=== PATIENT | female | born 1975 | race Caucasian/White ===

== ENCOUNTER 2016-11-09 21:41 | Emergency (ER) | payer MEDICAID ==
[2016-11-09 22:22] LABS: % IMMATURE GRANULYOCYTES 0.1 % (0.0-1.1); ABSOLUTE IMMATURE GRANULOCYTES 0.01 10^3/uL (0.00-0.10); ADD DIFF? NO; ADD MORPH? NO; ADD SCAN? NO; ATYPICAL LYMPHOCYTE FLAG 10 (0-99); FRAGMENT RBC FLAG 0 (0-99); HEMATOCRIT 40.9 % (38.0-47.0); HEMOGLOBIN 14.2 g/dL (12.6-16.3); LEFT SHIFT FLG 0 (0-99); LIPEMIA HEMOLYSIS FLAG 90 (0-99); MEAN CELL HEMOGLOBIN 34.4 pg (27.9-34.1); MEAN CELL HEMOGLOBIN CONCENTR. 34.7 g/dL (32.4-36.7); MEAN PLATELET VOLUME 9.4 fL (8.7-11.7); PLATELET CLUMPS FLAG 0 (0-99); PLATELET COUNT 268 10^3/uL (150-400); RED BLOOD CELL COUNT 4.13 10^6/uL (4.18-5.33); RED CELL DISTRIBUTION WIDTH 12.4 % (11.5-15.2)
[2016-11-09 22:32] LABS: ANION GAP 12 mEq/L (8-16); CALCIUM 8.9 mg/dL (8.5-10.4); CARBON DIOXIDE 26 mEq/l (22-31); CHLORIDE 111 mEq/L (97-110); CREATININE 0.8 mg/dL (0.6-1.0); ETHANOL SERUM 164 mg/dL (0-10); GLOMERULAR FILTRATION RATE > 60; GLUCOSE 77 mg/dL (70-100); POTASSIUM 4.1 mEq/L (3.5-5.2); SODIUM 149 mEq/L (134-144)
--- NOTE | 2016-11-09 23:45 | EDPHY ---
H & P Smoking Status: Never smoked Time Seen by Provider: 11/09/16 21:59 HPI/ROS: Chief complaint. Xanax, alcohol ingestion. Suicide ideation HPI. Patient 41-year-old female with history of previous anxiety depression suicide attempts. She was texting with her brother this afternoon and then he was unable to get a hold of her. Using her phone as a low care [facility] She was in the backseat of the car open bottle of Tequila in the front. She has had this same operation when trying to harm herself previously. She has apparently been drinking alcohol and taking Xanax ROS Constitutional. no fever/chills, no weakness Eyes. no problems with vision ENT. no sore throat, no nasal drainage Cardiovascular. no chest pain Respiratory. no shortness of breath, no cough Abdominal. no abdominal pain, no nausea/vomiting, no diarrhea . no problems urinating MS. no calf pain/swelling, no neck/back pain, no joint pain Skin. no rash Lymph. no swollen glands Neuro. no headache, no dizziness, no difficulty walking or with speech (Bernabe Burton) Past Medical/Surgical History: Anxiety, depression, previous suicide attempt (Bernabe Burton) Social History: Single, nonsmoker, recent alcohol (Bernabe Burton) Physical Exam: General Appearance: Alert well-developed female some slurred speech vital signs are stable Eyes: Pupils equal and round no pallor or injection. ENT, Mouth: Mucous membranes are moist. Respiratory: There are no retractions, lungs are clear to auscultation. Cardiovascular: Regular rate and rhythm. Gastrointestinal: Abdomen is soft and nontender, no masses, bowel sounds normal. Neurological: Awake and alert, sensory and motor exams grossly normal. Skin: Warm and dry, no rashes. Musculoskeletal: Neck is supple nontender. Extremities symmetrical, full range of motion. Psychiatric: Patient is oriented X 3, there is no agitation. (Bernabe Burton) Constitutional: Initial Vital Signs Temperature (C) 36.5 C 11/09/16 21:41 Heart Rate 80 11/09/16 21:41 Respiratory Rate 16 11/09/16 21:41 Blood Pressure 132/88 H 11/09/16 21:41 O2 Sat (%) 98 11/09/16 21:41 O2 Delivery Mode Room Air Allergies/Adverse Reactions: No Known Allergies Allergy (Unverified 02/13/16 21:40) Medical Decision Making Procedures: IV normal saline (Bernabe Burton) ED Course/Re-evaluation: Patient remained stable. She is cleared medically. Tox screen is positive for marijuana and alcohol. Negative for benzodiazepines Patient is awaiting mental health evaluation (Bernabe Burton) 0559: patient seen evaluated by mental health. Patient's, cooperative contract for safety she does not want hurt herself or kill herself. She tells me that she felt very anxious and has been doubt depression. She has good resources in place and follow-up care in place. She does contract for safety. She would like to be discharged from the emergency room. Mental health evaluation has seen evaluated her they feel comfortable with her being discharged. Patient feels comfortable being discharged as well. (Nik Thomas) Differential Diagnosis: Suicide ideation. Alcohol and marijuana intoxication I considered other intoxications or withdrawal syndromes (Bernabe Burton) Care Turn Over: Dr. Can at 2330 (Bernabe Burton) - Data Points Laboratory Results: Laboratory Results 11/09/16 21:55 11/09/16 21:55 11/09/16 21:55 WBC 7.51 10^3/uL (3.80-9.50) RBC 4.13 L 10^6/uL (4.18-5.33) Hgb 14.2 g/dL (12.6-16.3) Hct 40.9 % (38.0-47.0) MCV 99.0 fL (81.5-99.8) MCH 34.4 H pg (27.9-34.1) MCHC 34.7 g/dL (32.4-36.7) RDW 12.4 % (11.5-15.2) Plt Count 268 10^3/uL (150-400) MPV 9.4 fL (8.7-11.7) Neut % (Auto) 60.0 % (39.3-74.2) Lymph % (Auto) 28.8 % (15.0-45.0) [place] % (Auto) 6.7 % (4.5-13.0) Eos % (Auto) 3.7 % (0.6-7.6) Baso % (Auto) 0.7 % (0.3-1.7) Nucleat RBC Rel Count 0.0 % (0.0-0.2) Absolute Neuts (auto) 4.51 10^3/uL (1.70-6.50) Absolute Lymphs (auto) 2.16 10^3/uL (1.00-3.00) Absolute Monos (auto) 0.50 10^3/uL (0.30-0.80) Absolute Eos (auto) 0.28 10^3/uL (0.03-0.40) Absolute Basos (auto) 0.05 10^3/uL (0.02-0.10) Absolute Nucleated RBC 0.00 10^3/uL (0-0.01) Immature Gran % 0.1 % (0.0-1.1) Immature Gran # 0.01 10^3/uL (0.00-0.10) Sodium 149 H mEq/L (134-144) Potassium 4.1 mEq/L (3.5-5.2) Chloride 111 H mEq/L (97-110) Carbon Dioxide 26 mEq/l (22-31) Anion Gap 12 mEq/L (8-16) BUN 11 mg/dL (7-23) Creatinine 0.8 mg/dL (0.6-1.0) Estimated GFR > 60 Glucose 77 mg/dL (70-100) Calcium 8.9 mg/dL (8.5-10.4) Beta HCG, Qual NEGATIVE Urine Opiates Screen NEGATIVE (NEGATIVE) Urine Barbiturates NEGATIVE (NEGATIVE) Ur Phencyclidine Scrn NEGATIVE (NEGATIVE) Ur Amphetamine Screen NEGATIVE (NEGATIVE) U Benzodiazepines Scrn NEGATIVE (NEGATIVE) Urine Cocaine Screen NEGATIVE (NEGATIVE) U Marijuana (THC) Screen NEGATIVE (NEGATIVE) Ethyl Alcohol 164 H mg/dL (0-10) Departure - Departure Disposition: Home, Routine, Self-Care Clinical Impression: Polysubstance abuse, Alcohol intoxication, Anxiety Condition: Fair Instructions: Anxiety (ED) Additional Instructions: 1. If you have any worsening symptoms or feel bad have thoughts of harming herself or somebody else please immediately return to the emergency room. 2. Please follow up with the resources you be given by mental health. Referrals: NONE *PRIMARY CARE P,. [Primary Care Provider] - As per Instructions
[2016-11-10 02:04] VITALS: RESP 16
[2016-11-10 06:12] VITALS: BP 120/81; PULSE 88; TEMP 98.1; O2SAT 96
== END 2016-11-10 06:21 | disposition home or self-care (01) ==
LOC: EDUNIT#
DX: F10.129 Alcohol abuse with intoxication, unspecified (principal); F19.10 Other psychoactive substance abuse, uncomplicated; F41.9 Anxiety disorder, unspecified
CPT/HCPCS: 80305; G0480

== ENCOUNTER 2017-04-18 14:08 | Emergency (ER) | payer MEDICAID ==
--- NOTE | 2017-04-18 14:22 | EDPHY ---
H & P Source: Patient, EMS - Medical/Surgical History Hx Asthma: No Hx Chronic Respiratory Disease: No Hx Diabetes: No Hx Cardiac Disease: No Hx Renal Disease: No Hx Cirrhosis: No Hx Alcoholism: No Hx HIV/AIDS: No Hx Splenectomy or Spleen Trauma: No Other PMH: anxiety, depression, hx clonazepam - Social History Smoking Status: Never smoked HPI/ROS: HPI CHIEF COMPLAINT: Depression HISTORY OF PRESENT ILLNESS: This patient 41-year-old female she does have significant past medical history for depression with previous suicide attempt requiring intubation from alcohol and benzo overdose. Patient presents to the emergency room by EMS after police made a welfare check on her from a family member calling 911. According to EMS the family did not hear from her for few days they became concerned. EMS reports that she has been drinking alcohol and did take clonazepam. Patient denies SI but does feel depressed. She does not present on M1 hold however for after further evaluation discussion patient is flat affect very depressed intoxicated with alcohol and I feel that she is gravely disabled and a threat to herself she will need to be placed on M1 hold. She will need to have medical clearance. And then mental health evaluation. Past Medical History: Depression, previous suicide attempt requiring intubation Past Surgical History: No recent surgery Social History: Abuse clonazepam, alcohol Family History: Noncontributory ROS REVIEW OF SYSTEMS: A comprehensive 10 point review of systems is otherwise negative aside from elements mentioned in the history of present illness. Exam Constitutional triage nursing summary reviewed, vital signs reviewed, awake/ alert. Eyes normal conjunctivae and sclera, EOMI, PERRLA. HENT normal inspection, atraumatic, moist mucus membranes, no epistaxis, neck supple/ no meningismus, no raccoon eyes. Respiratory clear to auscultation bilaterally, normal breath sounds, no respiratory distress, no wheezing. Cardiovascular rate normal, regular rhythm, no murmur, no edema, distal pulses normal. Gastrointestinal soft, non-tender, no rebound, no guarding, normal bowel sounds, no distension, no pulsatile mass. Genitourinary no CVA tenderness. Musculoskeletal no midline vertebral tenderness, full range of motion, no calf swelling, no tenderness of extremities, no meningismus, good pulses, neurovascularly intact. Skin pink, warm, & dry, no rash, skin atraumatic. Neurologic awake, alert and oriented x 3, AAOx3, moves all 4 extremities equally, motor intact, sensory intact, CN II-XII intact, normal cerebellar, normal vision, normal speech. Psychiatric flat affect Heme/Lymph/Immune no lymphadenopathy. Differential Diagnosis: Includes but is not limited to in a particular order severe depression, benzodiazepine overdose, alcohol intoxication, gravely disabled Medical Decision Making: Plan for this patient IV establishment, EKG, cardiac cath technologist, blood draw for medical clearance, alcohol level, M1 hold. Patient will need mental health evaluation. Re-evaluation: EKG interpretation by me on record in [facility] system. Impression time of EKG 1441. This is sinus rhythm rate of 76. No acute ischemic change appreciated. Unremarkable intervals. Unremarkable EKG. 2228: No acute events during my shift. Now much more sober. Depressed. Flat affect. On M1 hold. Patient still needs mental evaluation. Patient signed over at 10:00 p.m. shift change to Dr. Whitley (Nik Thomas) Constitutional: Initial Vital Signs Temperature (C) 36.9 C 04/18/17 14:08 Heart Rate 87 04/18/17 14:08 Respiratory Rate 16 04/18/17 14:08 Blood Pressure 127/93 H 04/18/17 14:08 O2 Sat (%) 95 04/18/17 14:08 O2 Delivery Mode Room Air Allergies/Adverse Reactions: triazolam [From Halcion] Allergy (Unverified 04/18/17 14:16) Home Medications: Medication Instructions Recorded Clonazepam 04/18/17 Medical Decision Making ED Course/Re-evaluation: 2300 care assumed by me from Dr. Thomas pending mental health evaluation. 0230 patient has been evaluated by the EPS senior bi developer [place]. She knows the patient. Patient is currently not a suicide risk. She has had some depression but no plans or thoughts of suicide. She is andrew for safety at this time. Evaluated is also spoke with the patient's brother who is in agreement that is not believe the patient is a danger to herself. Plan will be to discharge home and follow up as an outpatient. She will return for any concerns. I am in agreement with this plan and the patient is discharged for outpatient care. (Robert Whitley) - Data Points Laboratory Results: Laboratory Results 04/18/17 14:45 04/18/17 14:45 04/18/17 04/18/17 04/18/17 14:45 14:45 14:45 WBC 10.34 10^3/uL H 10^3/uL (3.80-9.50) RBC 4.18 10^6/uL 10^6/uL (4.18-5.33) Hgb 14.6 g/dL g/dL (12.6-16.3) Hct 41.1 % % (38.0-47.0) MCV 98.3 fL fL (81.5-99.8) MCH 34.9 pg H pg (27.9-34.1) MCHC 35.5 g/dL g/dL (32.4-36.7) RDW 11.9 % % (11.5-15.2) Plt Count 221 10^3/uL 10^3/uL (150-400) MPV 9.4 fL fL (8.7-11.7) Neut % (Auto) 74.7 % H % (39.3-74.2) Lymph % (Auto) 15.8 % % (15.0-45.0) [place] % (Auto) 6.7 % % (4.5-13.0) Eos % (Auto) 1.5 % % (0.6-7.6) Baso % (Auto) 0.7 % % (0.3-1.7) Nucleat RBC Rel Count 0.0 % % (0.0-0.2) Absolute Neuts (auto) 7.73 10^3/uL H 10^3/uL (1.70-6.50) Absolute Lymphs (auto) 1.63 10^3/uL 10^3/uL (1.00-3.00) Absolute Monos (auto) 0.69 10^3/uL 10^3/uL (0.30-0.80) Absolute Eos (auto) 0.16 10^3/uL 10^3/uL (0.03-0.40) Absolute Basos (auto) 0.07 10^3/uL 10^3/uL (0.02-0.10) Absolute Nucleated RBC 0.00 10^3/uL 10^3/uL (0-0.01) Immature Gran % 0.6 % % (0.0-1.1) Immature Gran # 0.06 10^3/uL 10^3/uL (0.00-0.10) Sodium 149 mEq/L H mEq/L (134-144) Potassium 4.1 mEq/L mEq/L (3.5-5.2) Chloride 112 mEq/L H mEq/L (97-110) Carbon Dioxide 22 mEq/l mEq/l (22-31) Anion Gap 15 mEq/L mEq/L (8-16) BUN 10 mg/dL mg/dL (7-23) Creatinine 0.8 mg/dL mg/dL (0.6-1.0) Estimated GFR > 60 Glucose 73 mg/dL mg/dL (70-100) Calcium 9.0 mg/dL mg/dL (8.5-10.4) Beta HCG, Qual NEGATIVE Salicylates < 1.0 mg/dL L mg/dL (2.0-20.0) Acetaminophen < 10 mcg/mL L mcg/mL (10.0-30.0) Ethyl Alcohol 222 mg/dL H mg/dL (0-10) Medications Given: Discontinued Medications Sodium Chloride (Ns) 1,000 mls @ 0 mls/hr IV ONCE ONE; Wide Open PRN Reason: Protocol Stop: 04/18/17 14:28 Last Admin: 04/18/17 14:52 Dose: 1,000 mls Departure - Departure Disposition: Home, Routine, Self-Care Clinical Impression: Depression Qualifiers: Depression Type: major depressive disorder Major depression recurrence: single episode Active/Remission status: currently active Major depression episode severity: moderate Qualified Code(s): F32.1 - Major depressive disorder, single episode, moderate Condition: Fair Instructions: Depression (ED) Additional Instructions: Follow up with primary care physician in 2-3 days for further evaluation. Return emergency department for worsening depression, thoughts of suicide or self-harm, increasing paranoia, thoughts of hopelessness, or any other concerns. Referrals: Patient,NotPresent [Unknown] - As per Instructions
[2017-04-18] MEDS ORDERED: NS 1,000 ML IV ONE (14:27)
--- NOTE | 2017-04-18 14:43 | CPEKG ---
Heart Rate: 76 RR Interval: 789 P-R Interval: 140 QRSD Interval: 70 QT Interval: 368 QTC Interval: 414 P [place]: 36 QRS [place]: 61 T Wave [place]: 59 EKG Severity - NORMAL ECG - EKG Impression: SINUS RHYTHM Electronically Signed By: Nik Thomas 18-Apr-2017 22:32:10
[2017-04-18 15:13] LABS: % IMMATURE GRANULYOCYTES 0.6 % (0.0-1.1); ABSOLUTE IMMATURE GRANULOCYTES 0.06 10^3/uL (0.00-0.10); ADD DIFF? NO; ADD MORPH? NO; ADD SCAN? NO; ATYPICAL LYMPHOCYTE FLAG 20 (0-99); FRAGMENT RBC FLAG 0 (0-99); HEMATOCRIT 41.1 % (38.0-47.0); HEMOGLOBIN 14.6 g/dL (12.6-16.3); LEFT SHIFT FLG 10 (0-99); LIPEMIA HEMOLYSIS FLAG 90 (0-99); MEAN CELL HEMOGLOBIN 34.9 pg (27.9-34.1); MEAN CELL HEMOGLOBIN CONCENTR. 35.5 g/dL (32.4-36.7); MEAN CELL VOLUME 98.3 fL (81.5-99.8); MEAN PLATELET VOLUME 9.4 fL (8.7-11.7); PLATELET CLUMPS FLAG 0 (0-99); PLATELET COUNT 221 10^3/uL (150-400); RED BLOOD CELL COUNT 4.18 10^6/uL (4.18-5.33); RED CELL DISTRIBUTION WIDTH 11.9 % (11.5-15.2)
[2017-04-18 15:22] LABS: ANION GAP 15 mEq/L (8-16); CARBON DIOXIDE 22 mEq/l (22-31); CHLORIDE 112 mEq/L (97-110); CREATININE 0.8 mg/dL (0.6-1.0); ETHANOL SERUM 222 mg/dL (0-10); GLOMERULAR FILTRATION RATE > 60; GLUCOSE 73 mg/dL (70-100); POTASSIUM 4.1 mEq/L (3.5-5.2); SALICYLATE < 1.0 mg/dL (2.0-20.0); SODIUM 149 mEq/L (134-144)
[2017-04-18 22:39] VITALS: RESP 16; TEMP 97.7
[2017-04-19 02:49] VITALS: BP 122/88; PULSE 72; O2SAT 98
== END 2017-04-19 03:53 | disposition home or self-care (01) ==
LOC: EDUNIT#
DX: F32.1 Major depressive disorder, single episode, moderate (principal); E86.9 Volume depletion, unspecified
CPT/HCPCS: 80305; G0480

== ENCOUNTER 2018-10-15 14:48 | Emergency (ER) | payer MEDICAID ==
--- NOTE | 2018-10-15 15:09 | EDPHY ---
H & P Stated Complaint: "anxiety attack and hard time breathing" worse over past few wks Time Seen by Provider: 10/15/18 15:09 HPI/ROS: HPI CHIEF COMPLAINT: Anxiety attack/panic attack HISTORY OF PRESENT ILLNESS: 43-year-old female presents to the emergency room stating she feels very anxious is having a panic attack. She states she was up all last night feeling very anxious could not sleep got very little sleep she took clonazepam which helped her briefly for 2 hr to come down however her anxiety returned. She states she suffers from severe depression. She denies wanting to hurt herself or anybody else denies suicidal ideation denies homicidal ideation. Her main complaint is acute anxiety. She arrives to the emergency room stating that she feels very anxious and is requesting medication. She does have outpatient mental health resources including a psychiatrist that she sees. Past Medical History: Anxiety and depression Past Surgical History: No recent surgery Social History: Denies drugs alcohol tobacco. Family History: Noncontributory ROS REVIEW OF SYSTEMS: 10 Systems were reviewed and negative with the exception of the elements mentioned in the history of present illness. Exam Constitutional nontoxic no acute distress triage nursing summary reviewed, vital signs reviewed, awake/alert. Eyes normal conjunctivae and sclera, EOMI, PERRLA. HENT normal inspection, atraumatic, moist mucus membranes, no epistaxis, neck supple/ no meningismus, no raccoon eyes. Respiratory clear to auscultation bilaterally, normal breath sounds, no respiratory distress, no wheezing. Cardiovascular rate normal, regular rhythm, no murmur, no edema, distal pulses normal. Gastrointestinal soft, non-tender, no rebound, no guarding, normal bowel sounds, no distension, no pulsatile mass. Genitourinary no CVA tenderness. Musculoskeletal no midline vertebral tenderness, full range of motion, no calf swelling, no tenderness of extremities, no meningismus, good pulses, neurovascularly intact. Skin pink, warm, & dry, no rash, skin atraumatic. Neurologic awake, alert and oriented x 3, AAOx3, moves all 4 extremities equally, motor intact, sensory intact, CN II-XII intact, normal cerebellar, normal vision, normal speech. Psychiatric anxious. Flat affect depressed. Heme/Lymph/Immune no lymphadenopathy. Differential Diagnosis: Includes but is not limited to in a particular order acute anxiety attack, panic attack, depression, mood disorder, bipolar disorder Medical Decision Making: Here in emergency room the plan will be for IV establishment IV Ativan 1 mg basic blood work, IV fluids, and re-evaluate. The patient is denying suicidal ideation or homicidal ideation. Patient does complain of depression. Re-evaluation: 1722: Patient re-evaluated this time resting comfortabl. She feels much better after IV Ativan. She is requesting discharge home. She needs to follow up with her primary care doctor about her anxiety. She denies wanting to speak with mental health here this was offered. She denies SI or HI. Patient plans to make a follow-up appoint with her primary care doctor tomorrow about her anxiety and panic attacks. The patient is requesting a take-home pack of Ativan which I will provide 2 tabs for her. I recommend that she takes 1 dose tonight before she goes to bed. She understands not take any other benzos, narcotics or alcohol while taking these. She understands the Ativan 1 mg tab can make her sleepy. Additionally return precautions discussed. Her brothers at bedside. Her brother is going home with her. We have agreed on a plan of 2 tabs of take-home Ativan And close follow-up with her primary care doctor Return precautions discussed. Source: Patient - Personal History LMP (Females 10-55): IUD In Place - Medical/Surgical History Hx Asthma: No Hx Chronic Respiratory Disease: No Hx Diabetes: No Hx Cardiac Disease: No Hx Renal Disease: No Hx Cirrhosis: No Hx Alcoholism: No Hx HIV/AIDS: No Hx Splenectomy or Spleen Trauma: No Other PMH: anxiety, depression, - Social History Smoking Status: Never smoked Constitutional: Initial Vital Signs Temperature (C) 36.5 C 10/15/18 14:53 Heart Rate 105 H 10/15/18 14:53 Respiratory Rate 18 10/15/18 14:53 Blood Pressure 114/88 H 10/15/18 14:53 O2 Sat (%) 99 10/15/18 14:53 O2 Delivery Mode Room Air Allergies/Adverse Reactions: triazolam [From Halcion] Allergy (Verified 10/15/18 14:52) Home Medications: Medication Instructions Recorded Clonazepam 04/18/17 Seroquel 10/15/18 Medical Decision Making - Data Points Laboratory Results: Laboratory Results 10/15/18 15:22 10/15/18 15:22 10/15/18 10/15/18 10/15/18 15:57 15:22 15:22 WBC 7.29 10^3/uL 10^3/uL (3.80-9.50) RBC 3.99 10^6/uL L 10^6/uL (4.18-5.33) Hgb 13.6 g/dL g/dL (12.6-16.3) Hct 38.2 % % (38.0-47.0) MCV 95.7 fL fL (81.5-99.8) MCH 34.1 pg pg (27.9-34.1) MCHC 35.6 g/dL g/dL (32.4-36.7) RDW 12.4 % % (11.5-15.2) Plt Count 255 10^3/uL 10^3/uL (150-400) MPV 8.7 fL fL (8.7-11.7) Neut % (Auto) 69.3 % % (39.3-74.2) Lymph % (Auto) 17.6 % % (15.0-45.0) [place] % (Auto) 11.0 % % (4.5-13.0) Eos % (Auto) 1.4 % % (0.6-7.6) Baso % (Auto) 0.4 % % (0.3-1.7) Nucleat RBC Rel Count 0.0 % % (0.0-0.2) Absolute Neuts (auto) 5.06 10^3/uL 10^3/uL (1.70-6.50) Absolute Lymphs (auto) 1.28 10^3/uL 10^3/uL (1.00-3.00) Absolute Monos (auto) 0.80 10^3/uL 10^3/uL (0.30-0.80) Absolute Eos (auto) 0.10 10^3/uL 10^3/uL (0.03-0.40) Absolute Basos (auto) 0.03 10^3/uL 10^3/uL (0.02-0.10) Absolute Nucleated RBC 0.00 10^3/uL 10^3/uL (0-0.01) Immature Gran % 0.3 % % (0.0-1.1) Immature Gran # 0.02 10^3/uL 10^3/uL (0.00-0.10) Sodium 135 mEq/L mEq/L (135-145) Potassium 4.5 mEq/L mEq/L (3.5-5.2) Chloride 103 mEq/L mEq/L (97-110) Carbon Dioxide 23 mEq/l mEq/l (22-31) Anion Gap 9 mEq/L mEq/L (6-14) BUN 10 mg/dL mg/dL (7-23) Creatinine 0.7 mg/dL mg/dL (0.6-1.0) Estimated GFR > 60 Glucose 92 mg/dL mg/dL (70-100) Calcium 9.0 mg/dL mg/dL (8.5-10.4) Urine Opiates Screen NEGATIVE (NEGATIVE) Urine Barbiturates NEGATIVE (NEGATIVE) Ur Phencyclidine Scrn NEGATIVE (NEGATIVE) Ur Amphetamine Screen NEGATIVE (NEGATIVE) U Benzodiazepines Scrn NEGATIVE (NEGATIVE) Urine Cocaine Screen NEGATIVE (NEGATIVE) U Marijuana (THC) Screen NON-NEGATIVE H (NEGATIVE) Ethyl Alcohol 23 mg/dL H mg/dL (0-10) Medications Given: Discontinued Medications Sodium Chloride (Ns) 1,000 mls @ 0 mls/hr IV ONCE ONE PRN Reason: Wide Open Stop: 10/15/18 15:19 Last Admin: 10/15/18 15:26 Dose: 1,000 mls Lorazepam (Ativan Injection) 1 mg IVP EDNOW ONE Stop: 10/15/18 15:19 Last Admin: 10/15/18 15:39 Dose: 1 mg Departure - Departure Disposition: Home, Routine, Self-Care Clinical Impression: Anxiety Condition: Good Instructions: Anxiety (ED) Additional Instructions: 1. Follow up with her primary care doctor 2. Return emergency room if you have worsening symptoms questions or concerns 3. You have given a very short supply of Ativan. This can make you very sleepy. Do not mix it with anything. Referrals: Jeremiah Kerr MD [Primary Care Provider] - As per Instructions
[2018-10-15] MEDS ORDERED: LORazepam 2 MG/ML INJ IVP ONE (15:18)
[2018-10-15] MEDS ORDERED: NS 1,000 ML IV ONE (15:18)
[2018-10-15 15:36] LABS: PLATELET COUNT 255 10^3/uL (150-400)
[2018-10-15] MEDS ORDERED: LORAZEPAM 1 MG PREPACK#4 BTL TAKEHOME ONE (17:24)
[2018-10-15 17:36] VITALS: BP 120/80
== END 2018-10-15 17:34 | disposition home or self-care (01) ==
DX: F41.0 Panic disorder [episodic paroxysmal anxiety] (principal)
CPT/HCPCS: 80305; 96374; G0480; J2060

== ENCOUNTER 2018-10-17 11:26 | Emergency (ER) | payer MEDICAID ==
--- NOTE | 2018-10-17 12:31 | EDPHY ---
General - History Smoking Status: Never smoked Time Seen by Provider: 10/17/18 12:15 Narrative: CLINICAL IMPRESSION: Anxiety, depression ASSESSMENT/PLAN: Patient is a 43-year-old female with significant medical history of remote suicide attempt who presents to the emergency department complaining of anxiety , severe depression and "just wanting to go to sleep". Patient is brought in by a friend who cares for her child, very concerned for potential of suicide; patient adamantly denies suicidal ideation. Patient is afebrile and nontoxic- appearing, she crying hysterically. Physical examination is unremarkable. CBC revealed no evidence of leukocytosis or anemia. Her vital signs were reviewed and no findings to suggest bacterial illness. Metabolic panel with no metabolic abnormalities or acute kidney injury. Tylenol, salicylate negative. Alcohol 210 despite patient denying any alcohol use. Patient recently started on SSRI, appropriate amount of pills remain in her bottle without evidence of overdose. Patient also admits to taking for [id number] sleep aids, presumed to be Benadryl. Drug screen positive for cannabinoid. Upon evaluation myself and Dr. Pastrana, patient is clinically intoxicated and considered gravely disabled at this time, an M1 hold was subsequently placed. Patient is awaiting formal behavioral health evaluation at this time. DIFFERENTIAL DX: Psychosis including but not limited to chronic psychosis, medication noncompliance, medication side effect, depression and illicit drug use. ED COURSE: 1225: Discussed with Dr. Pastrana, she will evaluate this patient. Patient placed on detainer, no formal M1 hold yet. 1325: Blood alcohol level 210, after formal evaluation by Dr. Pastrana. The patient is now considered gravely disabled and an M1 hold was formally placed. 1635: Case discussed with Dr. Berger who will resume care of this patient at this time. CHIEF COMPLAINT: Severe depression, anxiety HPI: Patient is a 43-year-old female with significant medical history of remote suicide attempt who presents to the emergency department complaining of anxiety , severe depression and "just wanting to go to sleep". Patient is brought in by a friend who cares for her child, very concerned for potential of suicide; per friend's report she was texting her and making absolutely no sense almost seemingly in a different language. She proceeded to the patient's home where she found the patient crying hysterically, convinced her to come to the hospital for further evaluation. Patient reports that she is under a significant amount of stress secondary to a relationship which she chooses not to discuss with me. She is followed closely by her primary care provider Dr. Kerr at [facility]. Patient has been on clonazepam however ran out of her medications several days prior. Patient with history of clonazepam overdose 2 years prior. Patient was seen last week for increased anxiety, trialed on Seroquel however with no improvement of her symptoms. Also started on new SSRI, medications counted in the emergency department and appropriate amount of pills remaining in the bottle. Patient denies any illicit drug use, intentional overdose, alcohol use or suicidal ideation today. She states that she would just like to"go to sleep". She took 4 over-the- counter sleep aids this morning which she believes is Benadryl, denies any other medication use. She is feeling hopeless, states she woke up at 3:00 a.m. and was unable to go back to sleep thinking about "her nightmare of a life". She denies any history of patrizia, hallucinations or delusions. She denies any recent fevers, chills, illness, chest pain, shortness of breath or abdominal pain. PMH: Severe depression, anxiety, suicide attempt Pertinent Past Surgical History: Denies Family History: Noncontributory Social History: ETOH, denies illicit drug use REVIEW OF SYSTEMS: All other systems negative Constitutional: No fever, no chills, appetite change. Eyes: No discharge, vision change ENT: No sore throat, congestion, ear pain. Cardiovascular: No chest pain, no palpitations. Respiratory: No cough, no shortness of breath. Gastrointestinal: No abdominal pain, no vomiting, diarrhea. Genitourinary: No hematuria, dysuria, flank pain, pelvic pain Musculoskeletal: No back pain, joint swelling, joint pain, myalgias. Skin: No rashes, color change. Neurological: No headache, dizziness, weakness. PHYSICAL EXAM: General Appearance: Well-developed, crying hysterically and inconsolable however not toxic-appearing. HENT: Normocephalic, atraumatic. Bilateral external ears are normal. Nares are clear, mucosa is pink. Oropharynx is clear, uvula is midline. There is no tonsillar enlargement or exudate. The dentition is normal. Eyes: PERRLA, no nystagmus, swelling, discharge, pain or photosensitivity. Conjunctiva pink, no pallor or injection. Neck: Supple, nontender, no lymphadenopathy, no midline pain, FROM, no meningismus. Respiratory: There are no retractions, lungs are clear to auscultation. Cardiac: Mild tachycardia on arrival, no murmurs or gallops. Gastrointestinal: Abdomen is soft, nontender, bowel sounds normal, no masses/ hernia, no rigidity, guarding or focal peritoneal findings. Neurological: Alert and oriented x 3, CN 2-12 grossly intact, normal gait no ataxia, DTR's intact, normal sensation and strength Skin: Warm, dry, no rashes, no nodules on palpation. Musculoskeletal: Extremities are symmetrical, full range of motion, no tenderness, deformity, swelling, or erythema. Psychiatric: Patient is oriented X 3, patient is crying hysterically, does not make eye contact, very depressed affect. MEDICAL DECISION MAKING: Patient was seen independently. Secondary supervising physician at time of evaluation was Dr. Pastrana, she also independently evaluated this patient.. Diagnosis: Severe depression, anxiety. New, requires workup Summary: See Assessment and Plan for summary of ED visit Clinical lab tests: ordered / reviewed. Independent visualization of images, tracing, or specimens: Not applicable. Decision to obtain medical records or history from someone other than the patient: Yes, friend Review / Summarize previous medical records: Yes Discussed patient with another provider: Yes, Dr. Pastrana and Dr. Berger. Patient Progress: Stable. (Leslie Ahn) Medical Decision Makin: Patient accepted by Dr. Steinberg, at [facility]. EMTALA form filled out. Appropriate transfer will be set up. (Nik Thomas) Discussion: 4:30 p.m.-I assumed care of this patient. She is on an M1 hold. She presented with alcohol intoxication. She is currently alert and oriented, cooperative. She tells me that she has been very sad and depressed, but has not been suicidal. She awoke at 3:00 a.m. and took 4 Benadryl in an attempt to get back to sleep. She also drank alcohol that time. Medically cleared for mental health eval. (Rabia Berger) I evaluated and participated in the management of the patient. My co-signature indicates that I have reviewed this chart and I agree with the findings and plan of care as documented. My personal H&P findings include: 43 year old female presents after a possible overdose, vs excessive meds to sleep. Currently very upset, crying. Difficult to establish a clear history of what happened. Has history of depression and anxiety. Physical exam unremarkable; labs demonstrate alcohol of 210. Had repeatedly denied alcohol. Initially placed on detainer. Placed on 72 Hr H for concerns regarding safety , unclear intent. (Iris Pastrana) - Objective Vital Signs: Initial Vital Signs Temperature (C) 36.5 C 10/17/18 11:36 Heart Rate 105 H 10/17/18 11:36 Respiratory Rate 30 H 10/17/18 11:36 Blood Pressure 112/84 H 10/17/18 11:36 O2 Sat (%) 100 10/17/18 11:36 O2 Delivery Mode Room Air Allergies/Adverse Reactions: triazolam [From Halcion] Allergy (Verified 10/15/18 14:52) Home Medications: Medication Instructions Recorded Clonazepam 04/18/17 LORazepam [Ativan] 1 mg PO DAILY #2 tablet 10/15/18 Seroquel 10/15/18 Laboratory Results: Laboratory Results 10/17/18 12:40 10/17/18 12:40 Medications Given: Discontinued Medications Lorazepam (Ativan) 1 mg PO EDNOW ONE Stop: 10/17/18 20:03 Last Admin: 10/17/18 20:36 Dose: 1 mg Departure - Departure Disposition: Other Psych, Not Renae Clinical Impression: Severe major depression Alcohol intoxication Qualifiers: Complication of substance-induced condition: uncomplicated Qualified Code(s): F10.920 - Alcohol use, unspecified with intoxication, uncomplicated Condition: Fair Instructions: Depression (ED), Alcohol Intoxication (ED) Referrals: Jeremiah Kerr MD [Primary Care Provider] - As per Instructions
[2018-10-17 13:03] LABS: PLATELET COUNT 282 10^3/uL (150-400)
[2018-10-17] MEDS ORDERED: LORazepam 1 MG TAB PO ONE (20:02)
--- NOTE | 2018-10-17 20:57 | ASMTTLCEVL ---
TLC Evaluation - Basic Information Evaluation Start Date and 10/17/2018 06:00 PM Time Hospital Status Answers: M1 Hold 72-hr M1 Hold Start Date 10/17/2018 01:45 PM and Time Patient statement Notes: I was just having anxiety so I took a few sleeping pills with alcohol, ended up texting someone and thats it. Narrative Notes: Pt is a 43 year old female who presented to [facility] voluntarily with her friend complaining of anxiety, severe depression and just wanting to go to sleep. Pts friend who brought her in reported she was concerned for potential suicide. Pt adamantly denies SI. Pt was crying hysterically upon initial exam. Pt told ED physician that she has been very sad and depressed but has no suicidal ideation/plan. Pt is under the care of Dr. Rojo at [facility]. Pt has been on clonazepam, however ran out of her medications several days prior. Pt reported she is feeling hopeless, states she woke up at 3:00 am and was unable to go back to sleep thinking about her nightmare of a life. Pt reports that she has had depression my whole life. This isnt new. Pt stated every day is hard. Pt reports she has been more stressed lately due to relationship troubles and has been unable to sleep. Pt reports, Usually, I handle it well. I have lot of coping skills but I just didnt today. Pt also reports she does yoga and has started going to EMDR therapy to help and states, " I lknow a lot about mental health and live a healthy lifestyle most of the time.I Know more than doctors about this stuff." Pt was placed on an M1 hold by ED physician in the ED for gravely disabled. Pt was seen in our ED on 10/15/18 for a panic attack and was requesting medication. Diagnosis History Notes: Pt has an hx of depression and anxiety. Prior suicide attempts Notes: Pt has 1 suicide attempt on 12/16/17 where she overdosed on alcohol and benzodiazepines. Pt was found in her car on [facility]. Pt was found unresponsive and required rescue breathing on route to the emergency department. Pt was treated at [facility] in our ICU. Pt has had multiple evaluations with [facility] has been treated at [facility] for benzodiazepine and alcohol use multiple times. Per [facility] records, on 02/14/16, pt sent text messages to a friend regarding suicide. Pt was evaluated but discharged. On 03/28/16, pt called police and told them she wanted to kill herself. Pt was evaluated by [facility] at that time and discharged. Prior hospitalizations Notes: Pt was hospitalized at [facility] in 2016. Treatment Responses Notes: Unknown History of violence Notes: Pt denied any HI. Therapist: Pt stated she started seeing an EMDR therapist and has gone 2 or 3 times. Psychiatrist: Pt stated she does not have a psychiatrist but is going to start seeing Dr. Doreen Nelson. Medications (name, dosage, route, freq uency) Notes: Effexor 75mg BID. Pt stated she also takes dopamine supplements. Pt was prescribed clonazapem but states she does not have any left. Pt stated this was the first time she has taken clonazapem but previous [facility] records show pt has been treated for benzodiazapene overdose before in our emergency department. Allergies/Reaction Notes: Trizolam Sleep Notes: Pt stated she has difficulty sleeping. Pt stated she takes marijuana chocolate and that helps significantly. Appetite Notes: Wnl Medical/Surgical history Notes: None reported. Substance use history (frequency, intensity, his tory, duration) Notes: Pt denied regular alcohol use and stated she hasnt had alcohol since I was 16 years old. However our [facility] records show that pt has been seen in our ED twice in 2017, both times pt was intoxicated. Pt reports he uses marijuana for sleep. Pts bal was 209 and her utox was positive for marijuana. Family composition Notes: Pt states her parents and brother live in [place]. She reports having a good relationship with her family. Need for family Answers: No participation in patient's care Family psychiatric/substance abuse history Notes: Pt reports her mother has a hx of depression and had a nervous break down when she was 12 years old Developmental history Notes: Pt reported having a happy childhood until she was 12 and her mother had a nervous breakdown. Pt stated thats when she started getting depressed. Pt reports her parents had a lot of conflict and eventually . She denied any childhood abuse, concussions, LOC Abuse concerns Answers: None Marital status/children Notes: Pt is a long distance relationship. No children. Living situation Notes: Pt lives alone in [place]. Sexual history/orientation Notes: Pt identifies as heterosexual. Peer support/family strengths Notes: Pt stated she has a good peer and family support system. Education level/history Notes: Pt stated she has a masters degree in Nutrition and health. 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 Notes: None Legal Notes: Pt denied any legal problems. Yarsani/Spiritual Notes: None reported Leisure Notes: Pt stated she enjoys yoga, tennis, hike and outdoor sports. Collateral Notes: Friend-Izzy Patient's strengths Answers: Intelligent (Please select at least TWO strengths): Supportive Family Willingness [facility] Evaluation - Mental Status Exam Appearance: Answers: Clean Eye Contact: Answers: Avoiding Mood: Answers: Depressed Sad Affect: Answers: Apprehensive Guarded Sad Tearful Behavior: Answers: Cooperative Crying Speech: Answers: Relevant Logical Clear Coherent Thought Process: Answers: Organized Oriented Alert Intact Insight: Answers: Poor Judgement: Answers: Poor Depression Answers: Crying Spells Signs/Symptoms: Flat Affect Hopelessness Sad Mood Anxiety Signs/Symptoms Answers: Generalized Anxiety Panic Attacks Hallucinations: Answers: None Pt reported to have Answers: No suicidal/self-injuring ideation/behavior? Pt reported to be making Answers: No suicidal/self-injuring threats? Pt reported to have Answers: No aggression/assault ideation/behavior? Pt reported to be making Answers: No aggression/assault threats? Pt exhibits inability to Answers: Yes care for self/grave disability? Ideation/behavior is Answers: Yes chronic? Patient has a specific Answers: No plan? Pt has access to means to Answers: No execute the plan? Ideation involves Answers: No serious/lethal intent? Ideation has Answers: No delusional/hallucinatory content? History of Answers: Yes suicidal/self-injuring ideation, behavior, or threats? History of Answers: No aggressive/assaultive ideation, behavior, or threats? History of serious Answers: No physical harm to self/others while in treatment setting? [facility] Evaluation - Suicide/Homicide Risk Suicide Risk Factors: Answers: < 20 or > 40 Years of Age Alcohol/Heavy Drug Use Anxiety/Panic, Severe Cluster "B" D/O or Traits Flat Affect Intoxication Prior Suicide Attempt(s) Problems with Partner Homicide/violence risk Answers: None factors: Current Suicidal Answers: No Ideation? Current Suicidal Ideation Answers: No in the Past 48 Hours? Current Suicidal Ideation Answers: No in the Past Month? Current Suicidal Answers: No Ideation, Worst Ever? Suicide Internal Answers: Absence of Psychosis Protective Factors: Suicide External Answers: Positive Therapeutic Protective Factors: Relationships Responsibility to Pets Ranking of patient's Answers: Moderate suicidal risk: Ranking of patient's Answers: Low homicidal risk: TLC Evaluation - Wrap-up AXIS I Diagnosis (include DSM-V and ICD-10 codes), must also be entered in [employer], which is the source of truth. Notes: Major Depressive Disorder, recurrent, severe 296.33 (F33.2) Alcohol Use Disorder, moderate 303.90 (F10.[address] [facility] ED physician, Rabia Berger MD and on-call psychiatrist, Jany Alas MD, both concurred that pt appears to meet 27-65 criteria requiring psychiatric hospitalization as pt appears to be at risk of harm to self/ gravely disabled due to a mental illness condition. Evaluation End Date and 10/17/2018 08:45 PM Time (HH:MM): Date Signed: 10/17/2018 08:55 PM Electronically Signed By:Deyanira Hickey
[2018-10-18 02:15] VITALS: BP 141/82
== END 2018-10-18 01:15 ==
DX: F41.8 Other specified anxiety disorders (principal); F10.929 Alcohol use, unspecified with intoxication, unspecified; F10.980 Alcohol use, unspecified with alcohol-induced anxiety disorder; Y90.7 Blood alcohol level of 200-239 mg/100 ml; Z91.5 Personal history of self-harm
CPT/HCPCS: 80305; G0480

== ENCOUNTER → 2019-03-30 | Outpatient (CLI) | payer MEDICAID | LOC: FIMAGING 13:05 ==